=== PATIENT | male | born 1955 | race African-American/Black ===

== ENCOUNTER 2023-08-17 10:45 | Inpatient (IN) ==
[2023-08-17 11:33] LABS: Activated Partial Thrombo Time 26.5 seconds (26.0-38.0); INR 1.13 (0.83-1.13)
[2023-08-17 11:36] LABS: ABS Lymphocytes 2.5 10^3/uL (1.0-4.8); ABS Monocytes 0.9 10^3/uL (0.0-1.1); ABS Neutrophils 6.9 10^3/uL (1.5-7.6); Eosinophil % 0.1 %; Hematocrit 40.7 % (38-53); Hemoglobin 13.9 g/dL (13.2-16.3); Lymphocyte % 23.8 %; Mean Corpuscular Hemoglobin 30.8 pg (27-33); Mean Corpuscular Hgb Conc 34.2 g/dL (31-36); Mean Corpuscular Volume 90.1 fL (80-97); Mean Platelet Volume 8.3 fL (7.5-11.2); Platelet Count 330 10^3/uL (150-450); Red Blood Count 4.52 10^6/uL (4.06-5.63); White Blood Count 10.3 10^3/uL (3.6-10.2)
[2023-08-17 11:50] LABS: Albumin 4.6 g/dL (3.2-5.2); Albumin/Globulin Ratio 1.3 (1-3); Calcium 10.3 mg/dL (8.6-10.3); Creatinine, Serum 1.46 mg/dL (0.67-1.17); Direct Bilirubin 0.2 mg/dL (0.03-0.18); Globulin 3.5 g/dL (2-4); HDL Cholesterol 42.4 mg/dL; Indirect Bilirubin 0.9 mg/dL (0.3-1.0); Potassium 3.5 mmol/L (3.5-5.0); Total Bilirubin 1.1 mg/dL (0.2-1.0); Total Protein 8.1 g/dL (6.4-8.9); eGFR CKD-EPI 51.7 (>60)
[2023-08-17 13:33] LABS: Urine Benzodiazepine Screen None Detected (None Detect); Urine Buprenorphine Screen None Detected (None Detect); Urine Cannabinoids Screen None Detected (None Detect); Urine Fentanyl Screen None Detected (None Detect); Urine Hydrocodone Screen None Detected (None Detect); Urine Opiates Screen None Detected (None Detect)
[2023-08-17 13:53] LABS: Urine Appearance Cloudy; Urine Bilirubin Negative (Negative); Urine Blood 2+ (Negative); Urine Color Amber; Urine Glucose 1+(50 mg/dL) (Negative); Urine Ketones 1+ (Negative); Urine Nitrite Negative (Negative); Urine Protein 2+(100 mg/dL) (Negative); Urine Specific Gravity 1.059 (1.002-1.030); Urine Urobilinogen Negative (Negative)
[2023-08-17 14:38] LABS: Urine Bacteria Absent (Absent); Urine Red Blood Cell 3+(>10/hpf) (Absent); Urine Squamous Epithelial Cell Present (Absent); Urine White Blood Cell 1+(6-10/hpf) (Absent)
[2023-08-17 15:43] LABS: TSH Ultra Thyroid Stim Horm 0.29 mcIU/mL (0.34-5.60)
[2023-08-17 15:54] LABS: Vitamin B12 > 1450 pg/mL (180-914)
[2023-08-17] MEDS ORDERED: Lactated Ringers 1000 ml BAG 1,000 ML IV ONE ×2 (16:08→17:10)
[2023-08-17] MEDS ORDERED: Dextrose 50% Syringe 50 ml 25 GM/50 ML SYRINGE IV PUSH PRN (18:10)
[2023-08-17] MEDS ORDERED: Polyethylene Glycol 3350 BTL 238 GM BTL PO PRN (18:12)
[2023-08-17] MEDS: Pantoprazole VIAL 40 MG VIAL IV SCH (21:06)
[2023-08-17 22:35] LABS: C Reactive Protein 6.76 mg/L (<8.01)
[2023-08-18 06:32] LABS: ABS Lymphocytes 3.3 10^3/uL (1.0-4.8); ABS Monocytes 0.8 10^3/uL (0.0-1.1); ABS Neutrophils 5.3 10^3/uL (1.5-7.6); Eosinophil % 0.3 %; Hemoglobin 12.4 g/dL (13.2-16.3); Lymphocyte % 34.5 %; Mean Corpuscular Hemoglobin 30.2 pg (27-33); Mean Corpuscular Hgb Conc 33.6 g/dL (31-36); Mean Corpuscular Volume 90.1 fL (80-97); Mean Platelet Volume 8.6 fL (7.5-11.2); Platelet Count 301 10^3/uL (150-450); Red Cell Distribution Width 14.2 % (12-17); White Blood Count 9.5 10^3/uL (3.6-10.2)
[2023-08-18 06:55] LABS: Phosphorus 2.8 mg/dL (2.5-5.0); Potassium 3.3 mmol/L (3.5-5.0)
[2023-08-18 06:56] LABS: Anion Gap 13 mmol/L (2-16); Blood Urea Nitrogen 31 mg/dL (6-24); CO2 Carbon Dioxide 20 mmol/L (22-32); Calcium 9.4 mg/dL (8.6-10.3); Chloride 110 mmol/L (101-111); Glucose 82 mg/dL (70-100); Sodium 143 mmol/L (135-145); eGFR CKD-EPI 72.7 (>60)
[2023-08-18] MEDS ORDERED: Senna TAB 8.6 mg TAB PO SCH (09:00)
[2023-08-18] MEDS: Aspirin EC 81 mg TAB.EC (enteric coated) PO SCH (10:10)
[2023-08-18 11:42] LABS: Free T4 1.89 ng/dL (0.61-1.12)
[2023-08-18] MEDS ORDERED: Potassium Chloride LIQUID 20 MEQ/15 ML LIQUID PO ONE (12:45)
[2023-08-18] MEDS ORDERED: Lactulose 30 ml UDC PO PRN (13:33)
[2023-08-18] MEDS: Senna TAB 8.6 mg TAB PO SCH ×2 (14:42→21:29)
[2023-08-18] MEDS: Polyethylene Glycol 3350 17 GM PACKET PO SCH (14:42)
[2023-08-18] MEDS: KCL 10 MEQ/50 ML IVPREMIX 10 MEQ/50 ML BAG IV SCH (14:43)
[2023-08-18 15:34] LABS: ALT 10 U/L (7-52); Albumin/Globulin Ratio 1.3 (1-3); Alkaline Phosphatase 88 U/L (35-149); Globulin 3.1 g/dL (2-4); Total Bilirubin 1.3 mg/dL (0.2-1.0); Total Protein 7.1 g/dL (6.4-8.9)
[2023-08-18 16:22] LABS: Direct Bilirubin Redraw 0.2 mg/dL (0.1-0.5)
[2023-08-18] MEDS: Lactulose 30 ml UDC PO SCH ×2 (20:05→21:29)
[2023-08-18] MEDS: Pantoprazole VIAL 40 MG VIAL IV SCH (21:29)
[2023-08-18] MEDS: Enoxaparin 40 MG/0.4 ML SYR SUBCUT SCH (21:29)
[2023-08-19] MEDS: Lactulose 30 ml UDC PO SCH ×4 (04:26→20:56)
[2023-08-19 07:58] LABS: ABS Lymphocytes 2.9 10^3/uL (1.0-4.8); ABS Monocytes 0.7 10^3/uL (0.0-1.1); ABS Neutrophils 3.9 10^3/uL (1.5-7.6); Eosinophil % 0.4 %; Hematocrit 37.3 % (38-53); Hemoglobin 12.5 g/dL (13.2-16.3); Lymphocyte % 38.3 %; Mean Corpuscular Hemoglobin 30.1 pg (27-33); Mean Corpuscular Hgb Conc 33.4 g/dL (31-36); Mean Corpuscular Volume 90.1 fL (80-97); Mean Platelet Volume 8.5 fL (7.5-11.2); Platelet Count 292 10^3/uL (150-450); Red Blood Count 4.14 10^6/uL (4.06-5.63); Red Cell Distribution Width 14.2 % (12-17); White Blood Count 7.6 10^3/uL (3.6-10.2)
[2023-08-19 08:10] LABS: Albumin 3.9 g/dL (3.2-5.2); Albumin/Globulin Ratio 1.2 (1-3); Calcium 9.3 mg/dL (8.6-10.3); Creatinine, Serum 1.01 mg/dL (0.67-1.17); Direct Bilirubin 0.2 mg/dL (0.03-0.18); Globulin 3.3 g/dL (2-4); Phosphorus 3.1 mg/dL (2.5-5.0); Potassium 3.3 mmol/L (3.5-5.0); Total Bilirubin 1.2 mg/dL (0.2-1.0); Total Protein 7.2 g/dL (6.4-8.9); eGFR CKD-EPI 80.5 (>60)
[2023-08-19] MEDS ORDERED: Potassium Chlor 20 meq TAB.ER PO ONE (09:31)
[2023-08-19] MEDS: Polyethylene Glycol 3350 17 GM PACKET PO SCH (10:53)
[2023-08-19] MEDS: Aspirin EC 81 mg TAB.EC (enteric coated) PO SCH (11:02)
[2023-08-19] MEDS: Senna TAB 8.6 mg TAB PO SCH ×2 (11:03→20:56)
[2023-08-19] MEDS: KCL 20 MEQ/100 ML IVPREMIX 20 MEQ/100 ML BAG IV SCH ×2 (11:03→15:38)
[2023-08-19 11:23] LABS: TSH Ultra Thyroid Stim Horm 0.13 mcIU/mL (0.34-5.60)
[2023-08-19 11:27] LABS: Free T4 1.97 ng/dL (0.61-1.12)
[2023-08-19 18:40] LABS: Urine Appearance Turbid; Urine Bilirubin Negative (Negative); Urine Blood 2+ (Negative); Urine Color Amber; Urine Glucose Negative (Negative); Urine Ketones 1+ (Negative); Urine Nitrite Negative (Negative); Urine Protein 1+(30 mg/dL) (Negative); Urine Specific Gravity 1.029 (1.002-1.030); Urine Urobilinogen Negative (Negative)
[2023-08-19 19:13] LABS: Urine Bacteria Absent (Absent); Urine Red Blood Cell 3+(>10/hpf) (Absent); Urine Squamous Epithelial Cell Present (Absent); Urine White Blood Cell Absent (Absent)
[2023-08-19] MEDS: Pantoprazole VIAL 40 MG VIAL IV SCH (20:56)
[2023-08-19] MEDS: Enoxaparin 40 MG/0.4 ML SYR SUBCUT SCH (21:02)
[2023-08-20] MEDS: Lactulose 30 ml UDC PO SCH ×4 (04:53→22:00)
[2023-08-20] MEDS ORDERED: NS 0.9% 1000 ml BAG 1,000 ML IV SCH (08:00)
[2023-08-20 09:10] LABS: Calcium 9.4 mg/dL (8.6-10.3); Creatinine, Serum 1.09 mg/dL (0.67-1.17); Magnesium 1.9 mg/dL (1.9-2.7); Potassium 3.4 mmol/L (3.5-5.0); eGFR CKD-EPI 73.5 (>60)
[2023-08-20] MEDS ORDERED: Potassium Chlor 20 meq TAB.ER PO ONE (09:34)
[2023-08-20] MEDS: Senna TAB 8.6 mg TAB PO SCH ×2 (10:11→21:08)
[2023-08-20] MEDS: Polyethylene Glycol 3350 17 GM PACKET PO SCH (10:12)
[2023-08-20] MEDS: Aspirin EC 81 mg TAB.EC (enteric coated) PO SCH (10:12)
[2023-08-20] MEDS: Magnesium Hydroxide LIQ 30 ML UDC PO SCH ×2 (10:12→21:08)
[2023-08-20] MEDS: Enoxaparin 40 MG/0.4 ML SYR SUBCUT SCH (21:08)
[2023-08-20] MEDS: Pantoprazole VIAL 40 MG VIAL IV SCH (21:08)
[2023-08-20 22:35] LABS: HIV 4th Generation Nonreactive (Nonreactive)
[2023-08-21] MEDS: Lactulose 30 ml UDC PO SCH ×3 (04:29→19:59)
[2023-08-21 06:36] LABS: Calcium 9.5 mg/dL (8.6-10.3); Creatinine, Serum 1.01 mg/dL (0.67-1.17); Magnesium 2.3 mg/dL (1.9-2.7); Potassium 3.9 mmol/L (3.5-5.0); eGFR CKD-EPI 80.5 (>60)
[2023-08-21 06:40] LABS: ABS Eosinophils 0.1 10^3/uL (0.0-0.5); ABS Monocytes 0.7 10^3/uL (0.0-1.1); ABS Neutrophils 4.6 10^3/uL (1.5-7.6); ABS Nucleated RBC 0.01 10^3/ul; Eosinophil % 1.5 %; Hematocrit 41.7 % (38-53); Hemoglobin 13.9 g/dL (13.2-16.3); Lymphocyte % 35.9 %; Mean Corpuscular Hemoglobin 30.4 pg (27-33); Mean Corpuscular Hgb Conc 33.5 g/dL (31-36); Mean Platelet Volume 8.9 fL (7.5-11.2); Nucleated Red Blood Cells % 0.1 %/100WBC (0.0-0.8); Platelet Count 282 10^3/uL (150-450); Red Blood Count 4.58 10^6/uL (4.06-5.63); Red Cell Distribution Width 14.3 % (12-17); White Blood Count 8.4 10^3/uL (3.6-10.2)
[2023-08-21] MEDS: Aspirin EC 81 mg TAB.EC (enteric coated) PO SCH (09:37)
[2023-08-21] MEDS: Polyethylene Glycol 3350 17 GM PACKET PO SCH (09:39)
[2023-08-21] MEDS: Senna TAB 8.6 mg TAB PO SCH ×2 (09:39→19:59)
[2023-08-21] MEDS: Magnesium Hydroxide LIQ 30 ML UDC PO SCH ×2 (09:39→19:59)
[2023-08-21] MEDS: Pantoprazole VIAL 40 MG VIAL IV SCH (19:59)
[2023-08-21] MEDS: Enoxaparin 40 MG/0.4 ML SYR SUBCUT SCH (20:00)
[2023-08-22 07:05] LABS: Albumin 3.8 g/dL (3.2-5.2); Albumin/Globulin Ratio 1.2 (1-3); Calcium 9.3 mg/dL (8.6-10.3); Creatinine, Serum 1.01 mg/dL (0.67-1.17); Globulin 3.3 g/dL (2-4); Potassium 3.7 mmol/L (3.5-5.0); Total Bilirubin 0.6 mg/dL (0.2-1.0); Total Protein 7.1 g/dL (6.4-8.9); eGFR CKD-EPI 80.5 (>60)
[2023-08-22] MEDS ORDERED: Potassium Chlor 20 meq TAB.ER PO ONE (07:28)
[2023-08-22 08:22] LABS: Magnesium 2.5 mg/dL (1.9-2.7)
[2023-08-22] MEDS: Aspirin EC 81 mg TAB.EC (enteric coated) PO SCH (11:06)
[2023-08-22] MEDS: Polyethylene Glycol 3350 17 GM PACKET PO SCH (11:19)
[2023-08-22] MEDS: Lactulose 30 ml UDC PO SCH (11:19)
[2023-08-22] MEDS: Senna TAB 8.6 mg TAB PO SCH ×2 (11:19→21:13)
[2023-08-22] MEDS ORDERED: Polyethylene Glycol 3350 17 GM PACKET PO PRN (11:20)
[2023-08-22] MEDS: Magnesium Hydroxide LIQ 30 ML UDC PO SCH ×2 (13:25→21:14)
[2023-08-22] MEDS: Enoxaparin 40 MG/0.4 ML SYR SUBCUT SCH (21:14)
[2023-08-23] MEDS: Senna TAB 8.6 mg TAB PO SCH ×2 (09:06→21:07)
[2023-08-23] MEDS: Magnesium Hydroxide LIQ 30 ML UDC PO SCH ×2 (09:06→21:07)
[2023-08-23] MEDS: Aspirin EC 81 mg TAB.EC (enteric coated) PO SCH (09:06)
[2023-08-23 13:24] LABS: TB1 Ag minus Nil Result -0.02 IU/mL; TB2 Ag minus Nil Result -0.01 IU/mL
[2023-08-23 13:27] LABS: QuantiferonTb Gold Plus Result Negative (Negative)
[2023-08-23 15:40] LABS: Anaplasma phagocytophilum Negative (Negative); B. miyamotoi PCR, B Negative (Negative); Babesia divergens/MO-1 Negative (Negative); Babesia ducani Negative (Negative); Ehrlichia chaffeensis Negative (Negative); Ehrlichia ewingii/canis Negative (Negative); Ehrlichia muris eauclairensis Negative (Negative)
[2023-08-23] MEDS: Enoxaparin 40 MG/0.4 ML SYR SUBCUT SCH (21:07)
[2023-08-24] MEDS: Magnesium Hydroxide LIQ 30 ML UDC PO SCH ×2 (10:06→10:09)
[2023-08-24] MEDS: Senna TAB 8.6 mg TAB PO SCH ×2 (10:07→21:36)
[2023-08-24] MEDS: Aspirin EC 81 mg TAB.EC (enteric coated) PO SCH (10:07)
[2023-08-24] MEDS ORDERED: Magnesium Hydroxide LIQ 30 ML UDC PO PRN (12:35)
[2023-08-24] MEDS: Carbidopa/Levodop 10/100 MG TAB PO SCH (14:31)
[2023-08-24] MEDS: Enoxaparin 40 MG/0.4 ML SYR SUBCUT SCH (21:36)
[2023-08-25] MEDS: Aspirin EC 81 mg TAB.EC (enteric coated) PO SCH (08:54)
[2023-08-25] MEDS: Senna TAB 8.6 mg TAB PO SCH (08:54)
[2023-08-25] MEDS: Carbidopa/Levodop 10/100 MG TAB PO SCH (08:54)
[2023-08-25 11:19] VITALS: BP 120/72
== END 2023-08-25 16:30 | DRG 58 ==
LOC: EDHOLD 10:45 → ED 10:45 → SUATTDRO 13:24 → MEDTELE 17:03 → SUATTDRO 08-19 11:00
PROVIDERS: ADMIT Internal Medicine; ATTEND Hospitalist